=== PATIENT | male | born 1985 | race Caucasian/White ===

== ENCOUNTER 2017-12-04 01:42 | Emergency (ER) | payer SELFPAY ==
[~2017-12-04] VITALS: Ht 175.3 cm; Wt 100.0 kg
[2017-12-04 01:46] VITALS: Ht 175.3 cm; Wt 100.0 kg
[2017-12-04] MEDS ORDERED: NAPROSYN500 MG PO (03:23)
[2017-12-04] MEDS ORDERED: NORCO 7.5/325 T1 TA1 PO (03:23)
[2017-12-04 03:33] VITALS: BP 116/68
== END 2017-12-04 03:34 | disposition home or self-care (01) ==
LOC: D.ER 01:42
DX: S20.212A Contusion of left front wall of thorax, initial encounter (principal); V87.8XXA Person injured in other specified noncollision transport accidents involving motor vehicle (traffic), initial encounter; Y93.89 Activity, other specified; Y92.89 Other specified places as the place of occurrence of the external cause; M94.0 Chondrocostal junction syndrome [Tietze]; F17.200 Nicotine dependence, unspecified, uncomplicated